=== PATIENT | male | born 1965 | race Caucasian/White ===

== ENCOUNTER 2025-02-23 10:41 | Emergency (ER) | payer BC, OTHER ==
[2025-02-23 11:31] LABS: BASOPHILS PERCENT AUTO 1.1 % (0.0-1.0); EOSINOPHILS PERCENT AUTO 1.5 % (1.0-3.0); LYMPHOCYTES PERCENT AUTO 24.0 % (20.5-50.1); MONOCYTES PERCENT AUTO 11.0 % (2-8); NEUTROPHILS PERCENT AUTO 62.4 % (42.2-75.2); PLATELET COUNT,PLT 212 10^3/uL (150-450); RED BLOOD CELL COUNT 4.46 10^6/uL (4.6-6.2); WHITE BLOOD CELL COUNT,WBC 4.6 10^3/uL (5.0-10.0)
[2025-02-23 11:34] LABS: AMPHETAMINES,URINE NEGATIVE (NEGATIVE); BARBITURATES,URINE NEGATIVE (NEGATIVE); MDMA (ECSTASY), URINE NEGATIVE (NEGATIVE); METHAMPHETAMINES,URINE NEGATIVE (NEGATIVE); OPIATES,URINE NEGATIVE (NEGATIVE); OXYCODONE,URINE NEGATIVE (NEGATIVE); PHENCYCLIDINE,URINE NEGATIVE (NEGATIVE); TCA,URINE NEGATIVE (NEGATIVE)
[2025-02-23 11:36] LABS: APPEARANCE,URINE CLEAR (CLEAR); GLUCOSE,URINE NEGATIVE (NEGATIVE); OCCULT BLOOD,URINE NEGATIVE (NEGATIVE)
[2025-02-23 11:54] LABS: A/G RATIO 0.9; ALANINE AMINOTRANSFERASE,ALT 60 U/L (16-63); ASPARTATE AMNIOTRANSFERASE,AST 40 U/L (15-37); BILIRUBIN TOTAL 0.9 mg/dL (0.2-1.0); BLOOD UREA NITROGEN,BUN 9 mg/dL (7-18); CARBON DIOXIDE,CO2 22 mmol/L (21-32); CHLORIDE,CL 88 mmol/L (98-107); CREATININE 0.70 mg/dL (0.70-1.30); GLUCOSE RANDOM 102 mg/dL (70-99); LACTIC ACID 0.9 mmol/L (0.4-2.0); POTASSIUM,K 4.1 mmol/L (3.5-5.1); PROTEIN TOTAL,TP 7.8 g/dL (6.4-8.2); SODIUM,NA 123 mmol/L (136-145)
[2025-02-23] MEDS: Iopamidol 612 MG/ML 100 ML Bottle IVPUSH ONE (11:56)
[2025-02-23 11:57] LABS: ESTIMATED GFR 107 mL/min (>=60); ETHANOL BLOOD MEDICAL < 3 mg/dL (0)
[2025-02-23] MEDS: Ketorolac 30 MG/ML SDV IVPUSH ONE (13:20)
[2025-02-23] MEDS: hydrALAZINE 20 MG/ML SDV IVPUSH ONE (14:13)
== END 2025-02-23 14:18 | disposition other institution (70) ==
LOC: DL.ED 10:41
DX: R29.898 Other symptoms and signs involving the musculoskeletal system (principal); E87.1 Hypo-osmolality and hyponatremia; Z86.16 Personal history of COVID-19
CPT/HCPCS: 36415; 51702; 70450; 71260; 72125; 74177; 80053; 80305-QW; 80307; 81003; 83605; 83735; 84484; 85025; 96374; 96375; 99285-25; J0360; J1885; J1920; J7030; Q9967